=== PATIENT | female | born 1975 | race American Indian/Alaskan Native ===

== ENCOUNTER 2017-03-09 12:53 | Emergency (ER) | payer SELFPAY ==
[2017-03-09 13:12] VITALS: BP 122/81
[2017-03-09] MEDS ORDERED: MOTRIN PO ONE (16:26)
--- NOTE | 2017-03-09 17:23 | Emergency Department Report ---
ED General Adult HPI - General Chief complaint: Extremity Injury, Lower Stated complaint: FOOT AND ANKLE PAIN Time Seen by Provider: 03/09/17 16:25 Source: patient Mode of arrival: Ambulatory Limitations: No Limitations - History of Present Illness Initial comments: 42-year-old female presents to the ED complaining about left foot and ankle pain after trip and fall 3 days ago. States that ankle is swollen from the inversion injury. States she is also having tenderness to palpation over the metatarsals. Denies other injury. States able to walk without difficulty. Severity scale (0 -10): 8 - Related Data Previous Rx's Medication Instructions Recorded Last Taken Type Ibuprofen [Motrin] 800 mg PO Q8HR PRN #20 tablet 03/09/17 Unknown Rx Allergies Allergy/AdvReac Type Severity Reaction Status Date / Time No Known Allergies Allergy Unverified 03/09/17 13:12 ED Review of Systems ROS: Stated complaint: FOOT AND ANKLE PAIN Other details as noted in HPI Constitutional: denies: chills, fever Eyes: denies: eye pain, eye discharge, vision change ENT: denies: ear pain, throat pain Respiratory: denies: cough, shortness of breath, wheezing Cardiovascular: denies: chest pain, palpitations Endocrine: no symptoms reported Gastrointestinal: denies: abdominal pain, nausea, diarrhea Genitourinary: denies: urgency, dysuria, discharge Musculoskeletal: joint swelling, arthralgia. denies: back pain Skin: denies: rash, lesions Neurological: denies: headache, weakness, paresthesias Psychiatric: denies: anxiety, depression Hematological/Lymphatic: denies: easy bleeding, easy bruising ED Past Medical Hx - Past Medical History Previous Medical History?: No - Surgical History Past Surgical History?: No - Social History Smoking Status: Never Smoker Substance Use Type: Alcohol - Medications Home Medications: Home Medications Medication Instructions Recorded Confirmed Last Taken Type Ibuprofen [Motrin] 800 mg PO Q8HR PRN #20 tablet 03/09/17 Unknown Rx ED Physical Exam - General Limitations: No Limitations General appearance: alert, in no apparent distress - Head Head exam: Present: atraumatic, normocephalic - Eye Eye exam: Present: normal appearance - ENT ENT exam: Present: mucous membranes moist - Neck Neck exam: Present: normal inspection - Respiratory Respiratory exam: Present: normal lung sounds bilaterally. Absent: respiratory distress - Cardiovascular Cardiovascular Exam: Present: regular rate, normal rhythm. Absent: systolic murmur, diastolic murmur, rubs, gallop - GI/Abdominal GI/Abdominal exam: Present: soft, normal bowel sounds - Extremities Exam Extremities exam: Present: normal inspection - Expanded Lower Extremity Exam Left Knee exam: Present: normal inspection, full ROM Lower Leg exam: Present: normal inspection, full ROM. Absent: tenderness Ankle exam: Present: tenderness, swelling. Absent: abrasion, laceration, ecchymosis, deformity, erythema Foot/Toe exam: Present: full ROM, tenderness, swelling. Absent: normal inspection, abrasion, laceration, ecchymosis, dislocation, amputation, puncture wound - Back Exam Back exam: Present: normal inspection - Neurological Exam Neurological exam: Present: alert, oriented X3 - Psychiatric Psychiatric exam: Present: normal affect, normal mood - Skin Skin exam: Present: warm, dry, intact, normal color. Absent: rash ED Course Vital Signs 03/09/17 03/09/17 13:10 17:06 Temperature 97.5 F L Pulse Rate 89 Respiratory 18 20 Rate Blood Pressure 122/81 O2 Sat by Pulse 100 Oximetry ED Medical Decision Making - Medical Decision Making Patient has normal left ankle and left foot x-ray. No acute finding. An Brandan wrap and follow-up to orthopedic. No acute distress at this time. Critical care attestation.: If time is entered above; I have spent that time in minutes in the direct care of this critically ill patient, excluding procedure time. ED Disposition Clinical Impression: Left foot pain, Left ankle sprain Disposition: - TO HOME OR SELFCARE Is pt being admited?: No Does the pt Need Aspirin: No Condition: Good Instructions: Arthralgia (ED) Prescriptions: Ibuprofen [Motrin] 800 mg PO Q8HR PRN #20 tablet PRN Reason: Pain Referrals: PRIMARY CAREMD [Primary Care Provider] - 3-5 Days FRANCISCO HOFFMAN MD [Staff Physician] - 3-5 Days Forms: Work/School Release Form(ED) Time of Disposition: 17:22
--- NOTE | 2017-03-10 08:53 | XRay Report ---
Left ankle 3 views: History: Injury. Findings: Soft tissue swelling. No bony or articular abnormality. No fracture or dislocation. Impression: No acute fracture.
--- NOTE | 2017-03-10 08:53 | XRay Report ---
Left foot 3 views: History: Injury. Findings: No bony or articular abnormality. No fracture or dislocation. No periosteal reaction. Impression: No acute fracture.
== END 2017-03-09 17:34 | disposition home or self-care (01) ==
LOC: ED 12:53
DX: S93.402A Sprain of unspecified ligament of left ankle, initial encounter (principal); X58.XXXA Exposure to other specified factors, initial encounter; Y93.89 Activity, other specified; Y92.89 Other specified places as the place of occurrence of the external cause; Y99.8 Other external cause status
CPT/HCPCS: 99283